=== PATIENT | female | born 1980 | race Caucasian/White ===

== ENCOUNTER 2021-03-08 08:38 | Day surgery (SDC) | payer OTHER ==
[2021-03-06 17:19] VITALS: BMI 27.5
[2021-03-08] MEDS ORDERED: ROPIVACAINE HCL 0.5% 30ML VIAL ONE (09:32)
[2021-03-08] MEDS ORDERED: MIDAZOLAM HCL 2 MG/2 ML SINGLE DOSE VIAL ONE ×2 (09:32→11:59)
[2021-03-08] MEDS ORDERED: SUCCINYLCHOLINE CHLORIDE 200 MG/10 ML SYRINGE ONE (09:49)
[2021-03-08] MEDS ORDERED: PROPOFOL 20 ML ONE ×3 (09:49→10:57)
[2021-03-08] MEDS ORDERED: ONDANSETRON 4 MG/2 ML VIAL ONE ×2 (09:49→11:24)
[2021-03-08] MEDS ORDERED: DEXAMETHASONE SOD PHOSPHATE 4 MG/1 ML VIAL ONE ×2 (09:49→11:24)
[2021-03-08] MEDS ORDERED: ceFAZolin SODIUM 1 GM VIAL ONE (09:50)
[2021-03-08] MEDS: ONDANSETRON 4 MG/2 ML VIAL ONE ×2 (12:15→12:18)
[2021-03-08] MEDS ORDERED: oxyCODONE HCL 5 MG TABLET PO PRN ×2 (12:17)
[2021-03-08] MEDS ORDERED: ONDANSETRON 4 MG/2 ML VIAL IVPUSH PRN (12:17)
[2021-03-08] MEDS ORDERED: MIDAZOLAM HCL 2 MG/2 ML SINGLE DOSE VIAL IVPUSH ONE (12:18)
[2021-03-08] MEDS ORDERED: LACTATED RINGERS SOLUTION 1,000 ML IV SCH (12:30)
[2021-03-08 13:04] VITALS: TEMP 98.1
[2021-03-08 13:47] VITALS: BP 118/83; PULSE 82
== END 2021-03-08 14:15 | disposition home or self-care (01) ==
LOC: FASU 08:38
PROVIDERS: ATTEND Orthopaedic Surgery
PROC: 0PSJ04Z Reposition Left Radius with Internal Fixation Device, Open Approach (ICD-10-PCS; principal; 2021-03-08 10:34)
DX: S52.572A Other intraarticular fracture of lower end of left radius, initial encounter for closed fracture (principal); X58.XXXA Exposure to other specified factors, initial encounter; Y93.9 Activity, unspecified; Y92.9 Unspecified place or not applicable
CPT/HCPCS: 84703; 94760